=== PATIENT | male | born 1970 | race Caucasian/White ===

== ENCOUNTER 2018-01-14 14:36 | Observation (INO) ==
[2018-01-14] MEDS ORDERED: ONDANSETRON 4 MG/2 ML VIAL IV STA (14:57)
[2018-01-14] MEDS ORDERED: METOCLOPRAMIDE 10 MG/2 ML VIAL IV STA (14:57)
[2018-01-14] MEDS ORDERED: PANTOPRAZOLE 40 MG VIAL IV STA (14:57)
[2018-01-14] MEDS ORDERED: ASPIRIN 325 MG TABLET PO STA (14:57)
[2018-01-14] MEDS ORDERED: KETOROLAC 30 MG/1 ML VIAL IV STA (14:57)
[2018-01-14] MEDS ORDERED: METOPROLOL TARTRATE 25 MG TABLET PO STA (15:03)
[2018-01-14 15:12] LABS: Apearance,Urine CLEAR (Clear); Urine Color Straw (Yellow)
[2018-01-14 15:13] LABS: Basophils % 0.5 % (0.0-0.8); Bilirubin,Urine Negative (Negative); Blood, Urine Negative (Negative); Eosinophils # 0.1 10*3/uL (0.0-0.87); Eosinophils % 0.8 % (0.00-10.9); Glucose,Urine (UA) Negative (Negative); Hematocrit 39.3 VOL% (42.0-52.0); Hemoglobin 13.6 GM/DL (14.0-18.0); Immature Granulocytes % 0.1 %; Immature Granulocytes Absolute 0.01 #; Ketones,Urine Negative (Negative); Lymphocytes # 2.4 10*3/uL (1.4-4.0); Lymphocytes % 30.9 % (21.2-54.2); Mean Corpuscular HGB Conc 34.6 GM/DL (32-36); Mean Corpuscular Hemoglobin 29 PG (27-34); Mean Corpuscular Volume 82.2 FL (87-102); Mean Platelet Volume 8.7 FL (9.6-12.0); Monocytes # 0.9 10*3/uL (0.11-0.8); Monocytes % 11.6 % (1.7-12.7); Neutrophils # 4.4 10*3/uL (1.4-7.4); Neutrophils % 56.1 % (38.7-73.9); Nitrite,Urine Negative (Negative); Platelet Count 226 T/CUMM (130-400); Protein,Urine Negative; Red Blood Count 4.78 MC/CUMM (3.8-5.5); Red Cell Distribution Width 12.9 % (9.3-17.3); Urine Specific Gravity 1.002 (1.001-1.035); Urine Urobilinogen < 2.0 EU/DL (0.2-1.0); WBC,Urine <1 /HPF (0-6); White Blood Count 7.8 T/CUMM (4-12)
[2018-01-14 15:17] LABS: Barbiturates Screen,Urine Negative (Negative); Benzodiazepines Screen,Urine Negative (Negative); Cannabinoid Screen,Urine Negative (Negative); Opiate Screen,Urine Negative (Negative); Phencyclidine Screen,Urine Negative (Negative)
[2018-01-14 15:29] LABS: PT Patient Result 10.8 SECS; Partial Thromboplastin Time 25.8 SECS (0-40)
[2018-01-14 15:36] LABS: Alanine Aminotransferase 22 U/L (16-61); Albumin 3.7 G/DL (3.4-5.0); Alkaline Phosphatase 99 U/L (45-117); Aspartate Amino Transferase 18 U/L (0-37); Bilirubin,Total < 0.39 MG/DL (0.2-1.0); Blood Urea Nitrogen 7 MG/DL (7-18); Calcium 9.1 MG/DL (8.5-10.1); Glucose 131 MG/DL (74-106); Osmolality,Calculated 274.7 MOS/KG (273-304); Potassium 3.8 MMOL/L (3.5-5.1); Sodium 138 MMOL/L (136-145); Total Protein 7.8 G/DL (6.4-8.3)
[2018-01-14 15:37] LABS: Troponin I Only 0.081 NG/ML (0.00-0.045)
[2018-01-14] MEDS ORDERED: ACETAMINOPHEN 325 MG TABLET PO PRN (16:57)
[2018-01-14] MEDS ORDERED: DOCUSATE SODIUM 100 MG CAPSULE PO PRN (16:57)
[2018-01-14] MEDS ORDERED: ENOXAPARIN 40 MG/0.4 ML SYRINGE SUBCUT SCH (17:00)
[2018-01-14] MEDS ORDERED: PANTOPRAZOLE 40 MG TABLET PO SCH (17:00)
[2018-01-14] MEDS ORDERED: NITROGLYCERIN 2% OINT 1 INCH/GM PACK TOP ONE (17:01)
[2018-01-14] MEDS ORDERED: NITROGLYCERIN 2% OINT 1 INCH/GM PACK TOP STA (17:02)
[2018-01-14] MEDS ORDERED: DEXTROSE 50% 25 GM/50 ML VIAL IV PRN (17:10)
[2018-01-14] MEDS ORDERED: GLUCAGON 1 MG VIAL IM PRN (17:10)
[2018-01-14] MEDS ORDERED: LISINOPRIL 10 MG TABLET PO STA (17:12)
[2018-01-14 18:10] LABS: Thyroid Stimulating Hormone 1.98 uIU/ml (0.358-3.74)
[2018-01-14] MEDS: HALOPERIDOL 5 MG TABLET PO SCH (20:33)
[2018-01-14] MEDS: DIVALPROEX 500 MG TABLET PO SCH (20:34)
[2018-01-14] MEDS: OLANZapine 5 MG TABLET PO SCH (20:34)
[2018-01-14] MEDS: CARVEDILOL 6.25 MG TABLET PO SCH (20:34)
[2018-01-14] MEDS: metFORMIN 500 MG TABLET PO SCH (20:35)
[2018-01-14] MEDS: levETIRAcetam 500 MG TABLET PO SCH (20:35)
[2018-01-14] MEDS: traZODone 50 MG TABLET PO SCH (20:35)
[2018-01-14] MEDS: PHENYTOIN ER 100 MG CAPSULE PO SCH (20:35)
[2018-01-14] MEDS: NITROGLYCERIN 2% OINT 1 INCH/GM PACK TOP SCH (20:41)
[2018-01-14] MEDS: INSULIN REGULAR 100 UNIT/ML SUBCUT SCH (21:02)
[2018-01-14] MEDS ORDERED: HALOPERIDOL 5 MG/ML AMP IV ONE (21:58)
[2018-01-15] MEDS: NITROGLYCERIN 2% OINT 1 INCH/GM PACK TOP SCH ×4 (01:50→18:24)
[2018-01-15 05:23] LABS: Basophils % 0.6 % (0.0-0.8); Eosinophils # 0.1 10*3/uL (0.0-0.87); Eosinophils % 1.7 % (0.00-10.9); Hematocrit 33.4 VOL% (42.0-52.0); Hemoglobin 11.8 GM/DL (14.0-18.0); Immature Granulocytes % 0.2 %; Immature Granulocytes Absolute 0.01 #; Lymphocytes # 2.8 10*3/uL (1.4-4.0); Lymphocytes % 44.2 % (21.2-54.2); Mean Corpuscular HGB Conc 35.3 GM/DL (32-36); Mean Corpuscular Hemoglobin 29 PG (27-34); Mean Corpuscular Volume 81.3 FL (87-102); Mean Platelet Volume 8.7 FL (9.6-12.0); Monocytes # 0.7 10*3/uL (0.11-0.8); Monocytes % 10.9 % (1.7-12.7); Neutrophils # 2.7 10*3/uL (1.4-7.4); Neutrophils % 42.4 % (38.7-73.9); Platelet Count 172 T/CUMM (130-400); Red Blood Count 4.11 MC/CUMM (3.8-5.5); White Blood Count 6.4 T/CUMM (4-12)
[2018-01-15 05:56] LABS: Albumin 3.1 G/DL (3.4-5.0); Bilirubin,Total 0.6 MG/DL (0.2-1.0); Calcium 8.9 MG/DL (8.5-10.1); Osmolality,Calculated 275.8 MOS/KG (273-304); Potassium 3.7 MMOL/L (3.5-5.1); Total Protein 6.1 G/DL (6.4-8.3)
[2018-01-15 05:57] LABS: Risk Ratio 4.82
[2018-01-15] MEDS: LEVOTHYROXINE 100 MCG TABLET PO SCH (06:25)
[2018-01-15] MEDS: FUROSEMIDE 40 MG TABLET PO SCH (08:56)
[2018-01-15] MEDS: PANTOPRAZOLE 40 MG TABLET PO SCH (08:56)
[2018-01-15] MEDS: HALOPERIDOL 5 MG TABLET PO SCH ×3 (08:56→20:39)
[2018-01-15] MEDS: PHENYTOIN ER 100 MG CAPSULE PO SCH ×2 (08:56→20:40)
[2018-01-15] MEDS: CARVEDILOL 6.25 MG TABLET PO SCH ×2 (08:57→20:40)
[2018-01-15] MEDS: amLODIPine 10 MG TABLET PO SCH (08:57)
[2018-01-15] MEDS: LISINOPRIL 5 MG TABLET PO SCH (08:58)
[2018-01-15] MEDS: levETIRAcetam 500 MG TABLET PO SCH ×2 (08:58→20:40)
[2018-01-15] MEDS: metFORMIN 500 MG TABLET PO SCH ×2 (08:58→20:43)
[2018-01-15] MEDS: ASPIRIN EC 325 MG TABLET PO SCH (08:59)
[2018-01-15] MEDS: DIVALPROEX 500 MG TABLET PO SCH ×2 (08:59→20:39)
[2018-01-15] MEDS: INSULIN REGULAR 100 UNIT/ML SUBCUT SCH ×4 (09:01→20:52)
[2018-01-15] MEDS ORDERED: MAGNESIUM SULF RIDER 2 GM in PREMIX 1 EACH IV PRN (12:55)
[2018-01-15] MEDS ORDERED: diphenhydrAMINE CAP 25 MG CAPSULE PO ONE (12:55)
[2018-01-15] MEDS ORDERED: POTASSIUM CHLORIDE RIDER 10 MEQ in PREMIX 1 EACH IV PRN (12:55)
[2018-01-15] MEDS ORDERED: DIAZEPAM 5 MG TABLET PO ONE (12:55)
[2018-01-15] MEDS ORDERED: diphenhydrAMINE CAP 50 MG CAPSULE ONE (12:59)
[2018-01-15] MEDS ORDERED: NITROGLYCERIN DRIP 50 MG/250 ML BOTTLE IV ONE (13:21)
[2018-01-15] MEDS ORDERED: MIDAZOLAM 2 MG/2 ML VIAL ONE (13:21)
[2018-01-15] MEDS ORDERED: LIDOCAINE 1% 20 ML VIAL ONE (13:21)
[2018-01-15] MEDS: SODIUM CHLORIDE 0.9% 1,000 ML IV SCH ×2 (13:21→20:53)
[2018-01-15] MEDS ORDERED: fentaNYL 100 MCG/2 ML VIAL ONE (13:22)
[2018-01-15] MEDS ORDERED: VERAPAMIL 5 MG/2 ML VIAL ONE (13:22)
[2018-01-15] MEDS ORDERED: ENOXAPARIN 60 MG/0.6 ML SYRINGE ONE (13:42)
[2018-01-15] MEDS ORDERED: GLUCAGON 1 MG VIAL IM PRN (14:13)
[2018-01-15] MEDS ORDERED: DEXTROSE 50% 25 GM/50 ML VIAL IV PRN (14:13)
[2018-01-15] MEDS: OLANZapine 5 MG TABLET PO SCH (20:39)
[2018-01-15] MEDS: traZODone 50 MG TABLET PO SCH (20:39)
[2018-01-16] MEDS: NITROGLYCERIN 2% OINT 1 INCH/GM PACK TOP SCH ×4 (00:06→17:40)
[2018-01-16] MEDS: SODIUM CHLORIDE 0.9% 1,000 ML IV SCH ×2 (05:21→12:21)
[2018-01-16] MEDS: LEVOTHYROXINE 100 MCG TABLET PO SCH (06:06)
[2018-01-16] MEDS: INSULIN REGULAR 100 UNIT/ML SUBCUT SCH ×3 (08:37→16:17)
[2018-01-16] MEDS: CARVEDILOL 6.25 MG TABLET PO SCH (09:01)
[2018-01-16] MEDS: DIVALPROEX 500 MG TABLET PO SCH (09:01)
[2018-01-16] MEDS: amLODIPine 10 MG TABLET PO SCH (09:01)
[2018-01-16] MEDS: PHENYTOIN ER 100 MG CAPSULE PO SCH (09:01)
[2018-01-16] MEDS: HALOPERIDOL 5 MG TABLET PO SCH ×2 (09:01→16:16)
[2018-01-16] MEDS: LISINOPRIL 5 MG TABLET PO SCH (09:01)
[2018-01-16] MEDS: metFORMIN 500 MG TABLET PO SCH (09:01)
[2018-01-16] MEDS: ASPIRIN EC 325 MG TABLET PO SCH (09:02)
[2018-01-16] MEDS: PANTOPRAZOLE 40 MG TABLET PO SCH (09:02)
[2018-01-16] MEDS: FUROSEMIDE 40 MG TABLET PO SCH (09:02)
[2018-01-16] MEDS: levETIRAcetam 500 MG TABLET PO SCH (09:02)
[2018-01-16 16:09] VITALS: BP 153/92
[2018-02-10] MEDS ORDERED: HALOPERIDOL DECANOATE 150 MG IM SCH (09:00)
== END 2018-01-16 19:33 ==
LOC: EDBD → EDUNIT# → N.EDINP 14:36 → N.ED 14:36 → N.TELEN 19:07
PROVIDERS: ADMIT Internal Medicine Infectious Disease; ATTEND Internal Medicine Infectious Disease
PROC: CLCCHCL (ICD-10-PCS; 2018-01-15 14:00)